=== PATIENT | male | born 2000 | race Two or more races ===

== ENCOUNTER 2024-05-20 18:35 | Emergency (ER) | payer OTHER ==
[~2024-05-20] VITALS: Ht 182.9 cm; Wt 81.8 kg
[2024-05-20 20:16] LABS: Basophils # (auto) 0 10 ^3/uL (0-0.2); Basophils % (auto) 0.3 % (0.0-2.0); Eosinophils # (auto) 0.1 10 ^3/uL (0-0.8); Eosinophils % (auto) 1.2 % (0.0-7.0)
[2024-05-20 20:18] LABS: Alanine Aminotransferase 55 U/L (7-40); Alkaline Phosphatase 77 U/L (46-116); Anion Gap 7 (5-15); Aspartate Aminotransferase 65 U/L (13-40); BUN/Creatinine Ratio 14.4 (10.0-20.0); Blood Urea Nitrogen 15 mg/dL (9-23); Calcium 10.3 mg/dL (8.7-10.4); Carbon Dioxide 27 mmol/L (20-30); Chloride 104 mmol/L (98-107); Glucose 62 mg/dL (74-106); Potassium 3.8 mmol/L (3.5-5.1); Sodium 138 mmol/L (136-145)
[2024-05-20 20:19] LABS: Albumin 4.6 g/dL (3.2-4.8); Bilirubin, Total 0.6 mg/dL (0.2-1.0); Total Protein 7.5 g/dL (5.7-8.2)
[2024-05-20 20:39] LABS: Lymphocytes % (auto) 19.4 % (10.0-50.0); Neutrophils % (auto) 72.1 % (37.0-80.0); White Blood Cell 11.7 10^3/uL (4.4-10.8)
[2024-05-20 20:40] VITALS: BP 134/82; PULSE 61; RESP 18; TEMP 97.8; O2SAT 100
[2024-05-20 20:40] LABS: Lymphocytes # (auto) 2.3 10 ^3/uL (0.4-5.4); Monocytes # (auto) 0.8 10 ^3/uL (0-1.3); Neutrophils # (auto) 8.4 10 ^3/uL (1.6-8.6); Red Blood Cells 5.08 10^6/uL (4.5-5.90)
[2024-05-20 20:41] LABS: Hematocrit 45.7 % (41.0-53.0); Hemoglobin 15.7 g/dL (13.5-17.5); Mean Corpuscular Hemoglobin 30.8 pg (28.0-32.0); Mean Corpuscular Hgb Conc. 34.3 g/dL (32.0-36.0); Mean Corpuscular Volume 89.9 fL (80.0-100.0)
[2024-05-20 20:42] LABS: Red Cell Distribution Width 13.2 % (11.8-14.3)
== END 2024-05-20 20:42 | disposition home or self-care (01) ==
LOC: ER 18:35
DX: R10.13 Epigastric pain (principal)
CPT/HCPCS: 36415; 80053; 85025